=== PATIENT | female | born 2000 | race African-American/Black ===

== ENCOUNTER 2019-11-08 23:57 | Emergency (ER) | payer SELFPAY ==
[~2019-11-08] VITALS: Ht 167.6 cm; Wt 52.0 kg
[2019-11-09 00:46] LABS: HCG SCREEN NEGATIVE
[2019-11-09] MEDS ORDERED: ACETAMINOPHEN 325MG TABLET PO ONE (02:45)
[2019-11-09] MEDS ORDERED: KETOROLAC 15MG/ML VIAL IV ONE (02:45)
[2019-11-09] MEDS ORDERED: AMOXICILLIN/POTASSIUM CLAVULANATE 875/125MG TAB PO ONE (03:00)
[2019-11-09 07:29] VITALS: BP 109/67
[2019-11-09] MEDS ORDERED: OXYCODONE HCL/ACETAMINOPHEN 5/325MG TABLET PO ONE (07:30)
== END 2019-11-09 08:21 | disposition short-term general hospital (02) ==
LOC: ER 23:57
DX: S02.32XA Fracture of orbital floor, left side, initial encounter for closed fracture (principal); S05.8X2A Other injuries of left eye and orbit, initial encounter; Y04.0XXA Assault by unarmed brawl or fight, initial encounter; Y93.89 Activity, other specified; Y92.488 Other paved roadways as the place of occurrence of the external cause
CPT/HCPCS: 70486; 84703; 96374; 99285; J1885; Z7610